=== PATIENT | female | born 1995 | race Caucasian/White ===

== ENCOUNTER 2019-09-23 19:02 | Emergency (ER) | payer OTHER ==
[2019-09-23 19:30] VITALS: BP 107/63; PULSE 115; TEMP 99.8; BMI 23.8
--- NOTE | 2019-09-23 19:33 | PDOC ---
Rapid Medical Evaluation Time Seen by Provider: 09/23/19 19:27 Medical Evaluation: Allergies Allergy/AdvReac Type Severity Reaction Status Date / Time No Known Allergies Allergy Verified 09/23/19 19:26 09/23/19 19:28 Pt presents to the ER for fever, cough and sore throat, for three days. She is 16 weeks . No bleeding. She did get a flu shot this year Exam: No acute distress, lungs CTAB, throat non-erythematous Orders: strep, flu Pt to proceed to the ER for further evaluation Discharge Disposition - Diagnosis Cough - Referrals - Patient Instructions - Post Discharge Activity
--- NOTE | 2019-09-23 20:24 | PDOC ---
History of Present Illness - General Chief Complaint: Respiratory Stated Complaint: 16 WKS PREG/FEVER Time Seen by Provider: 09/23/19 19:27 - History of Present Illness Initial Comments: 09/23/19 20:22 24-year-old female without comorbidities presents for upper respiratory symptoms x3 days Past History - Past Medical History Allergies/Adverse Reactions: Allergies Allergy/AdvReac Type Severity Reaction Status Date / Time No Known Allergies Allergy Verified 09/23/19 19:26 - Psycho Social/Smoking Cessation Hx Smoking History: Never smoked Hx Alcohol Use: No Drug/Substance Use Hx: No Review of Systems - Review of Systems Constitutional: Yes: Fever HEENTM: Yes: Nose Congestion Respiratory: Yes: Cough *Physical Exam - Vital Signs Last Vital Signs Temp Pulse Resp BP Pulse Ox 99.8 F H 115 H 16 107/63 100 09/23/19 19:26 09/23/19 19:26 09/23/19 19:26 09/23/19 19:26 09/23/19 19:26 - Physical Exam 09/23/19 20:23 GENERAL: The patient is awake, alert, and fully oriented, in no acute distress. HEAD: Normal with no signs of trauma. EYES: sclera anicteric, conjunctiva clear. ENT: Ears normal tympanic membranes normal oropharynx clear uvula midline NECK: Normal range of motion LUNGS: Breath sounds equal, clear to auscultation bilaterally. No wheezes, and no crackles. HEART: S1 and S2 without murmur, rub or gallop. ABDOMEN: Soft, nontender, normoactive bowel sounds. No guarding, no rebound. No masses. EXTREMITIES: Normal range of motion, no edema. No clubbing or cyanosis. No cords, erythema, or tenderness. NEUROLOGICAL: Cranial nerves II through XII grossly intact. Normal speech, normal gait. PSYCH: Normal mood, normal affect. SKIN: Warm, Dry, normal turgor, no rashes or lesions noted. Medical Decision Making - Medical Decision Making 09/23/19 20:23 Benign examination negative influenza and strep swabs follow-up with primary care physician supportive care Tylenol Motrin for fevers Discharge - Discharge Information Problems reviewed: Yes Clinical Impression/Diagnosis: Cough, Viral URI with cough Condition: Stable Disposition: HOME - Admission No - Follow up/Referral Referrals: Ruth Ann Vazquez MD [Staff Physician] - - Patient Discharge Instructions Patient Printed Discharge Instructions: Common Cold Additional Instructions: Return to the emergency room for worsening symptoms and without fail follow-up with your primary care physician in 1 to 2 days for further evaluation and treatment options. Tylenol Motrin as directed for fevers and body aches your influenza and strep swabs today were negative - Post Discharge Activity
== END 2019-09-23 20:30 | disposition home or self-care (01) ==
LOC: JERFT 19:02
DX: O99.89 Other specified diseases and conditions complicating pregnancy, childbirth and the puerperium (principal); J06.9 Acute upper respiratory infection, unspecified; B97.89 Other viral agents as the cause of diseases classified elsewhere; Z3A.16 16 weeks gestation of pregnancy
CPT/HCPCS: 87070; 87804; 87880; 99281-25

== ENCOUNTER 2020-03-07 00:20 | Inpatient (IN) | payer OTHER ==
[2020-03-07] MEDS ORDERED: BENZOCAINE 20% 57 GM BOTTLE TP PRN (01:25)
[2020-03-07] MEDS ORDERED: ACETAMINOPHEN 325 MG TABLET (FP) PO PRN (01:25)
[2020-03-07] MEDS ORDERED: METHYLERGONOVINE MALEATE 0.2 MG/1 ML AMP IM PRN (01:25)
[2020-03-07] MEDS ORDERED: WITCH HAZEL 50% (TUCKS) 40 PAD/JAR PAD TP PRN (01:25)
[2020-03-07] MEDS ORDERED: BENZOCAINE 28 GM HEMORRHOIDAL OINTMENT TP PRN (01:25)
[2020-03-07] MEDS ORDERED: IBUPROFEN 600 MG TABLET (FP) PO PRN (01:25)
[2020-03-07] MEDS ORDERED: BISACODYL 10 MG SUPP.RECT RC PRN (01:25)
--- NOTE | 2020-03-07 01:34 | HP ---
Past Medical History - Primary Care Physician PCP:: Kindra Ramirez - Admission Chief Complaint: 24 yrs [id number] , 39.2/7 wks by sono admitted in active labor .Onset LP 03/06/20 at 22.00Hr History of Present Illness: pnc at , [facility] panel : 08/05/19 : A pos, Hbsag neg, Hep C nr, Rubella immune, Hiv neg, Varicella immune, Measles immune, Sickle neg, pap nilm, gc/ct neg 12/18/19 1 hr Gtt 133, Quantiferon neg, syphilis test neg 3rd Trimester labs not available course uneventful serial US done by [facility] for growth .last sono 6.17 35.5 wks, vx, becky 15.9 , bpp8/8 h/o Nt Screen/AFP neg History Source: Patient, Medical Record Limitations to Obtaining History: No Limitations - Past Medical History Cardiovascular: No: HTN Pulmonary: Yes: Asthma (in past , no meds now) Gastrointestinal: Yes: Other (none known) ...: 5 ...Para: 1 ...Term: 1 (G4 01/02/2017, [facility],8.1" [facility] ...Spon : 1 (G2 ;2014) ...Induced : 2 (G1: 2014, G3 2015) ...LMP: 06/06/19 ... Weeks Gestation by Dates: 39.1 ...EDC by Dates: 03/13/20 ...EDC by Sono: 03/12/20 (39.2 wks ) Heme/Onc: Yes: Other (declines) Infectious Disease: No: AIDS, HIV, STD's, Tuberculosis Psych: No: Addictions, Anxiety, Bipolar, Depression, Panic, Psychosis, Schizophrenia Endocrine: No: Diabetes Mellitus, Hypothyroidism - Past Surgical History Past Surgical History: Yes: None Hx Myomectomy: No Hx Transabdominal Cerclage: No - Smoking History Smoking history: Never smoked - Alcohol/Substance Use Hx Alcohol Use: No History of Substance Use: reports: None Home Medications - Allergies Allergies/Adverse Reactions: Allergies Allergy/AdvReac Type Severity Reaction Status Date / Time No Known Drug Allergies Allergy Verified 02/11/20 11:57 shellfish derived Allergy Itching Verified 02/11/20 11:57 - Home Medications Home Medications: Ambulatory Orders Prenat 115/Iron Fum/Folic/Dss [ 19 Tablet] 1 tab PO DAILY 02/11/20 Physical Exam - Maternity Constitutional: Yes: Severe Distress Eyes: Yes: WNL HENT: Yes: WNL Neck: Yes: WNL Cardiovascular: Yes: WNL Lungs: Clear to auscultation Breast(s): Yes: Other (not examined) - Abdominal Exam/OB Fundal Height: 40 Number of Fetuses: Single Presentation: Vertex Contractions: Yes Regularity: Regular (2-3 min) Intensity: Strong Monitor Mode: External Heart Rate (range): 130 Heart Rate Location: Midline Category: I Accelerations: Non-Uniform - Vaginal Exam/OB Vaginal Bleeding: Bloody Show Dilatation (cm): 8 Effacement (%): 100 Amniotic Membrane Status: Bulging Presentation: Vertex/Position (exam at 12.20 AM) Station: 0 - Physical Exam Extremities: Yes: WNL. No: Calf Tenderness Edema: LLE: 1+, RLE: 1+ Integumentary: Yes: Tattoos Deep Tendon Reflex Grade: Normal +2 ...Motor Strength: WNL Psychiatric: Yes: WNL - Labs Lab Results: Laboratory Tests 03/07/20 03/07/20 03/07/20 01:40 01:40 01:40 WBC 13.8 H Hgb 14.3 Hct 42.6 Plt Count 355 PT with INR 10.90 INR 0.92 PTT (Actin FS) 28.4 Sodium Potassium Chloride Carbon Dioxide BUN Syphilis Serology Blood Type A POSITIVE Antibody Screen Negative 03/07/20 03/07/20 01:40 01:40 WBC Hgb Hct Plt Count PT with INR INR PTT (Actin FS) Sodium 138 Potassium 4.2 Chloride 105 Carbon Dioxide 26 BUN 12.2 Syphilis Serology Non-reactive Blood Type Antibody Screen Problem List - Problems (1) with 39 completed weeks gestation Code(s): Z3A.39 - 39 WEEKS GESTATION OF (2) First stage of labor established Code(s): NVG4747 - (3) Positive GBS test Code(s): B95.1 - STREPTOCOCCUS, GROUP B, CAUSING DISEASES CLASSD ELSR Assessment/Plan 24 yrs 39.2/7 weeks admitted in active labor GBS unknown at the time of admission . pt progressed rapidly stom at 12.30 AM , at 12.34 AM, , placenta at 12.39 AM 1st degree laceratio n sutured Plan PP care [facility] contacted GBS pos , hiv neg , gc/ct neg
--- NOTE | 2020-03-07 01:57 | PN ---
Delivery - Delivery Vaginal Delivery: No Problems, Spontaneous (pt delievered vx , Joaquina position, shoulders delievered without difficulty . cord blood collected , trivascular cord , . placenta delievered completely with membranes .. 1st degree laceration sutured with chr catgut #2/0 under local anesthesia. sponge & needle count correct. Pr exam mucosa & sphincter intact) Type of Anesthesia: Local Episiotomy/Laceration: Vaginal Extension/lac, 1st degree EBL (cc): 300 Delivery, Single - Stages of Labor Date 1st Stage Initiatied: 03/06/20 Time 1st Stage Initiated: 22:00 Date 2nd Stage Initiated: 03/07/20 Time 2nd Stage Initiated: 00:30 Date of Delivery: 03/07/20 Time of Delivery: 00:34 Date Placenta Delivered: 03/07/20 Time Placenta Delivered: 00:39 Placenta: Yes: Spontaneous, Uterine Exploration - Condition of Infant Infant Gender: Female Weight: 7 lb 15 oz Position: Left, OA Total Hours ROM (Hrs/Mins): 9 min - 1 Minute Total Score: 9 5 Minutes Total Score: 9 Remarks - Remarks Remarks: 24 yrs , 39.2/7 weeks admitted in active labor GBs unknown at the time of delivery , pt progressed rapidly, no time to start antibiotics, Iv was just inserted at the time of delivery . later on 3rdT labs results obtained from [facility], GBS pos . nursery notified Intrapartum course uneventful
[2020-03-07 02:11] LABS: BASO % 0.4 % (0-2.0); EOS % 0.3 % (0-4.5); HEMATOCRIT 42.6 % (32.4-45.2); HEMOGLOBIN 14.3 GM/dL (10.7-15.3); LYMPH % 12.4 % (8-40); MCH 32.5 pg (25.7-33.7); MCHC 33.7 g/dl (32.0-36.0); MEAN CELL VOLUME 96.5 fl (80-96); MEAN PLT VOLUME 8.6 fl (7.5-11.1); MONO % 6.9 % (3.8-10.2); PLATELET COUNT 355 K/MM3 (134-434); RBC 4.41 M/mm3 (3.60-5.2); RDW 13.1 % (11.6-15.6); WHITE BLOOD COUNT 13.8 K/mm3 (4.0-10.0)
[2020-03-07] MEDS ORDERED: IBUPROFEN 600 MG TABLET (FP) PO ONE (02:26)
[2020-03-07 02:28] LABS: INR 0.92 (0.83-1.09); PROTHROMBIN TIME (PATIENT) 10.9 SEC (9.7-13.0)
[2020-03-07 02:30] LABS: ACTIVATED PTT 28.4 SECONDS (25.2-36.5)
[2020-03-07 03:15] VITALS: BMI 32.1
[2020-03-07 03:26] LABS: BLOOD UREA NITROGEN 12.2 mg/dL (7-18); CREATININE 0.8 mg/dL (0.55-1.3); POTASSIUM 4.2 mmol/L (3.5-5.1)
[2020-03-07] MEDS: FERROUS SO4 325 MG TABLET (FP) PO SCH ×2 (08:39→17:54)
--- NOTE | 2020-03-07 09:26 | PN ---
Post Progress Note - Subjective Subjective: c/o cramps . Post Day: 0 Type of Delivery: Vital Signs: Vital Signs Temperature 98.5 F 03/07/20 05:00 Pulse Rate 75 03/07/20 05:00 Respiratory Rate 20 03/07/20 05:00 Blood Pressure 125/61 03/07/20 05:00 O2 Sat by Pulse Oximetry (%) 100 03/07/20 02:50 Breast Exam: Yes: Soft, Other (both brast + bottle feeding). No: Engorged Uterus: Yes: Fundus Firm, Fundus below umbilicus Lochia, amount: Moderate Extremities: Yes: Calves non-tender Perineum: Yes: Laceration (healing ) Activity: Ambulating - Labs Labs: CBC WBC 13.8 K/mm3 (4.0-10.0) H 03/07/20 01:40 RBC 4.41 M/mm3 (3.60-5.2) 03/07/20 01:40 Hgb 14.3 GM/dL (10.7-15.3) 03/07/20 01:40 Hct 42.6 % (32.4-45.2) 03/07/20 01:40 MCV 96.5 fl (80-96) H 03/07/20 01:40 MCH 32.5 pg (25.7-33.7) 03/07/20 01:40 MCHC 33.7 g/dl (32.0-36.0) 03/07/20 01:40 RDW 13.1 % (11.6-15.6) 03/07/20 01:40 Plt Count 355 K/MM3 (134-434) 03/07/20 01:40 MPV 8.6 fl (7.5-11.1) 03/07/20 01:40 Absolute Neuts (auto) 11.0 K/mm3 (1.5-8.0) H 03/07/20 01:40 Total Counted 100 03/07/20 01:40 Neutrophils % 80.0 % (42.8-82.8) 03/07/20 01:40 Neutrophils % (Manual) 81.0 % (42.8-82.8) 03/07/20 01:40 Lymphocytes % 12.4 % (8-40) 03/07/20 01:40 Lymphocytes % (Manual) 11.0 % (8-40) 03/07/20 01:40 Monocytes % 6.9 % (3.8-10.2) 03/07/20 01:40 Monocytes % (Manual) 8 % (3.8-10.2) 03/07/20 01:40 Eosinophils % 0.3 % (0-4.5) 03/07/20 01:40 Basophils % 0.4 % (0-2.0) 03/07/20 01:40 Nucleated RBC % 0 % (0-0) 03/07/20 01:40 Problem List - Problems (1) with 39 completed weeks gestation Code(s): Z3A.39 - 39 WEEKS GESTATION OF (2) First stage of labor established Code(s): LZP7994 - (3) Positive GBS test Code(s): B95.1 - STREPTOCOCCUS, GROUP B, CAUSING DISEASES CLASSD ELSWHR (4) Normal spontaneous vaginal delivery Code(s): O80 - ENCOUNTER FOR FULL-TERM UNCOMPLICATED DELIVERY (5) Encounter for care and examination after delivery Code(s): Z39.2 - ENCOUNTER FOR ROUTINE FOLLOW-UP Assessment/Plan stable pp instructions given discharge fletcher.
[2020-03-07] MEDS: PRENATAL VITAMINS W/ FOLIC ACID TABLET (FP) PO SCH (09:57)
[2020-03-07] MEDS: OXYTOCIN 20 UNITS in 0.9% NS 20 UNIT/1,000 ML INFUS.BAG IV SCH (12:30)
[2020-03-07 23:01] VITALS: TEMP 98.6
[2020-03-08] MEDS: OXYTOCIN 20 UNITS in 0.9% NS 20 UNIT/1,000 ML INFUS.BAG IV SCH (04:28)
--- NOTE | 2020-03-08 08:38 | DS ---
Physical Examination Vital Signs: Vital Signs Temperature 98.6 F 03/07/20 22:00 Pulse Rate 77 03/07/20 22:00 Respiratory Rate 18 03/07/20 22:00 Blood Pressure 119/93 03/07/20 22:00 O2 Sat by Pulse Oximetry (%) 100 03/07/20 02:50 Constitutional: Yes: Well Nourished, No Distress, Calm Eyes: Yes: WNL, Conjunctiva Clear, EOM Intact HENT: Yes: WNL, Atraumatic, Normocephalic Neck: Yes: WNL, Supple, Trachea Midline Cardiovascular: Yes: WNL, Regular Rate and Rhythm Respiratory: Yes: WNL, Regular, CTA Bilaterally Gastrointestinal: Yes: WNL, Normal Bowel Sounds Musculoskeletal: Yes: WNL Extremities: Yes: WNL Edema: No Integumentary: Yes: WNL Neurological: Yes: WNL, Alert, Oriented ...Motor Strength: WNL Psychiatric: Yes: WNL Labs: CBC, BMP 03/07/20 01:40 03/07/20 01:40 Discharge Summary Problems reviewed: Yes Reason For Visit: LABOR ADMIT Current Active Problems Encounter for care and examination after delivery (Acute) First stage of labor established (Acute) Normal spontaneous vaginal delivery (Acute) Positive GBS test (Acute) with 39 completed weeks gestation (Acute) Procedures: Principal: Hospital Course: Patient presented in labor She had an uncomplicated She met all milestones She was discharged home in stable condition Griffin Fox MD Condition: Stable - Instructions Diet, Activity, Other Instructions: Post Instructions DIET: Continue good diet high in protein, calcium, and iron rich foods. Drink at least eight (8) glasses of water daily in addition to other fluids. ___ Regular diet MEDICATIONS: Continue vitamins and iron as previously directed. Motrin and Tylenol may be taken for minor discomfort. ACTIVITY: Mild to moderate exercise may be started in two (2) weeks. Take frequent rest periods. Resume normal activity after six (6) week check up. WOUND CARE OF OPERATIVE SITE: Continue use of perineal bottle until vaginal discharge stops. Keep area clean. Shower daily. Keep abdominal wound dry. Report any drainage or redness to physician. Tub baths, tampons and douches are not permitted for [address] Breast feeding & or Bottle feeding BREAST CARE: (For those that are not breast feeding): If engorgement occurs: Wear tight fitting bra. Take Tylenol or Motrin for pain. Apply cold packs (ice in bags to each breast ) FAMILY PLANNING: There are many control alternatives to pursue and they should be discussed at your first office visit. You may resume sexual activity after your six (6) week check up. (Remember, breast feeding is not a contraceptive) RTC 3 weeks PP NEXT PHYSICIAN APPOINTMENT: Be certain to call for a six (6) week appointment, unless otherwise directed. Call Clinic or got to Emergency Dept if you have any of the following: Heavy vaginal bleeding Painful urination Leg pain Unusual odor noted to vaginal bleeding High fever Red streaking noted on breast Referrals: Kindra Ramirez MD [Staff Physician] - Disposition: HOME - Home Medications Comprehensive Discharge Medication List: Ambulatory Orders Prenat 115/Iron Fum/Folic/Dss [ 19 Tablet] 1 tab PO DAILY 02/11/20 Acetaminophen [Tylenol .Regular Strength -] 650 mg PO Q3H PRN tablet 03/07/20 Benzocaine [Americaine 20% [place] -] 1 spray TP PRN PRN bottle 03/07/20 Ibuprofen [Motrin -] 600 mg PO Q4H PRN #20 tablet 03/07/20 Miscellaneous Medical Supply [Breast Pump, Electronic] 1 each NR ASDIR #1 unit 03/07/20 Vitamins (Sjr) - 1 tab PO DAILY #30 tablet 03/07/20
[2020-03-08] MEDS: FERROUS SO4 325 MG TABLET (FP) PO SCH (08:45)
[2020-03-08 09:53] LABS: BASO % 0.6 % (0-2.0); EOS % 1.1 % (0-4.5); HEMATOCRIT 42.8 % (32.4-45.2); HEMOGLOBIN 14.4 GM/dL (10.7-15.3); LYMPH % 14.2 % (8-40); MCH 32.6 pg (25.7-33.7); MCHC 33.8 g/dl (32.0-36.0); MEAN CELL VOLUME 96.7 fl (80-96); MEAN PLT VOLUME 8.1 fl (7.5-11.1); MONO % 5.9 % (3.8-10.2); NEUT % 78.2 % (42.8-82.8); PLATELET COUNT 343 K/MM3 (134-434); RBC 4.42 M/mm3 (3.60-5.2); RDW 13.1 % (11.6-15.6); WHITE BLOOD COUNT 18.2 K/mm3 (4.0-10.0)
[2020-03-08] MEDS ORDERED: DIPHTH,PERTUSS(ACELL),TET 0.5 ML DISP.SYRIN IM ONE (10:00)
[2020-03-08] MEDS: PRENATAL VITAMINS W/ FOLIC ACID TABLET (FP) PO SCH (10:44)
[2020-03-08 11:53] VITALS: BP 115/62; PULSE 74
[2020-03-08 15:57] LABS: ANISOCYTOSIS 1+; MACROCYTOSIS 1+; PLATELET ESTIMATE NORMAL
[2020-03-08] MEDS ORDERED: SENNOSIDES/DOCUSATE COMBO (SENNA PLUS) TABLET (UD) PO PRN (22:00)
== END 2020-03-08 13:50 | disposition home or self-care (01) | DRG 560 ==
LOC: JLDR 00:20 → J3W 05:00
PROVIDERS: ADMIT Obstetrics & Gynecology; ATTEND Obstetrics & Gynecology
PROC: 10E0XZZ Delivery of Products of Conception, External Approach (ICD-10-PCS; principal; 2020-03-07)
PROC: 0HQ9XZZ Repair Perineum Skin, External Approach (ICD-10-PCS; 2020-03-07)
PROC: 0W8NXZZ Division of Female Perineum, External Approach (ICD-10-PCS; 2020-03-07)
DX: O70.0 First degree perineal laceration during delivery (principal); Z3A.39 39 weeks gestation of pregnancy; Z22.330 Carrier of Group B streptococcus; Z37.0 Single live birth
CPT/HCPCS: 36415; 59409; 80048; 85025; 85610; 85730; 86780; 86850; 86900; 86901; 90715; U0003